=== PATIENT | female | born 1995 | race Two or more races ===

== ENCOUNTER → 2025-01-24 | Day surgery (SDC) | payer OTHER ==
[~2025-01-24] VITALS: Ht 160 cm; Wt 68.0 kg
[~2025-01-24] MED LIST: FAMO20TA10 PO; LIDOCAINE 1% INJ PF 5ML AMP ONE; LIDOCAINE 2% (LOCAL ANESTH.) PF 5ml SDV ONE; PROPOFOL 10 MG/ML 20 ML IV ONE
--- NOTE | 2025-01-24 12:56 | DVHHP2 ---
GI H&P Pre-Op Assessment Date: 01/24/25 Chief complaint: LUQ pain HPI: per clinic note Past medical history: per clinic note Past surgical history: per clinic note Family history: per clinic note Physical exam: General: NAD, AAOX3 HEENT: PERRL, no scleral icterus, normal hearing, gums without lesions or bleeding, oropharynx clear without erythema or exudate. Neck: Supple without enlargement of the thyroid, or lymphadenopathy. Chest: Normal size and shape, no tenderness, lung bright clear to auscultation and percussion, nonlabored breathing. Heart: RRR, no murmur Abdomen: non-distended, no tenderness to palpation, +BS, no hepatosplenomegaly Extremities: no edema Neurological: CN II-XII intact, sensation intact in all extremities, 5+ strength in all extremities Skin: No rashes, No jaundice Assessment: - LUQ pain Plan: - EGD - Risks (bleeding, infection, perforation, reaction to sedation medications and cardiopulmonary arrest) and benefit of the procedure were explained to patient. Patient agrees to undergo the procedure. IMAN CHAN MD Jan 24, 2025 12:56
[2025-01-24 13:20] VITALS: TEMP 98.1
--- NOTE | 2025-01-24 13:23 | DVHOP2 ---
Operative Report DATE OF OPERATION: 01/24/25 PROCEDURE: Upper Endoscopy. PREOPERATIVE INDICATION: The patient is a 29 -year-old female undergoing endoscopy for LUQ pain. POSTOPERATIVE DIAGNOSES: 1. Slight gastritis PROCEDURE PERFORMED BY: Contreras Puga SCOPE: Olympus videoendoscope. ASA CLASS: 2 PREOPERATIVE MEDICATIONS: MAC with Mick MARTIN PROCEDURE IN DETAIL: After obtaining an informed consent, the patient was placed on her back. The patient was then sedated with the above medications. A bite block was placed between her teeth. The endoscope was then passed through the oropharynx, into the esophagus, and through the stomach and pylorus up to the second and third part of the duodenum. The duodenum was normal in appearance. There was slight gastritis. Gastric biopsies were obtained using cold forceps. The GEJ was normal in appearance at 35 cm. The esophagus was normal in appearance. The endoscope was then withdrawn. The patient tolerated the procedure well without difficulty. COMPLICATIONS : None SPECIMENS: Gastric biopsies DISPOSITION: D/C to home PLAN: 1. Await for biopsy result CONTRERAS PUGA MD Jan 24, 2025 13:23
--- NOTE | 2025-01-24 13:24 | DVHDS2 ---
Physician Discharge Progress N Final Diagnosis: slight gastritis Operations or Procedures: Operations or Procedures EGD with cold biopsy Condition on Discharge: Good Disposition: Home Discharge Instructions: Diet: Regular Activity: No Restrictions, As Tolerated Medications: resume with previous home medications Follow Up Care: Discharge Statement: "Patient was advised to return to the ER or call 911 if any headaches, dizziness, shortness of breath, chest pain, abdominal pain, bleeding, fevers, or worsening of medical condition. Patient was counseled about treatment plan, medications, possible side effects, patientverbalized understanding. All questions were answered to the best of my ability. This discharge took greater then 30 minutes in planning, reviewing documenta tion, counseling the patient, and discussing with other team members." IMAN CHAN MD Jan 24, 2025 13:24
[2025-01-24 13:35] VITALS: BP 112/49; PULSE 76; RESP 19; O2SAT 97
== END | disposition home or self-care (01) ==
LOC: GI 10:12
PROVIDERS: ATTEND Internal Medicine Gastroenterology
DX: R10.12 Left upper quadrant pain (principal); K29.50 Unspecified chronic gastritis without bleeding; B96.81 Helicobacter pylori [H. pylori] as the cause of diseases classified elsewhere; E66.3 Overweight; Z98.890 Other specified postprocedural states; Z88.0 Allergy status to penicillin
CPT/HCPCS: 43239; 81025; 88305; 88342; J2003; J2704; J7030